=== PATIENT | female | born 1995 | race Caucasian/White ===

== ENCOUNTER 2018-06-28 08:43 | Emergency (ER) | payer OTHER ==
[~2018-06-28] VITALS: Ht 198.1 cm; Wt 70.5 kg
[2018-06-28 08:48] VITALS: BP 137/71
--- NOTE | 2018-06-28 08:55 | NUR ---
PT AMB TO BED 9
--- NOTE | 2018-06-28 09:00 | NUR ---
23 yo F c/o N/V, dizziness, mouth tingling sensation and a productive cough X 1 week. Pt verbalized having "green phlegm". Denies PMH.
--- NOTE | 2018-06-28 09:10 | NUR ---
WAITING FOR ER MD EVALUATION.
[2018-06-28 09:57] VITALS: BP 137/71
--- NOTE | 2018-06-28 09:57 | NUR ---
Patient discharged by dr tate with v/s stable. Written and verbal after care instructions given and explained. Patient alert, oriented and verbalized understanding of instructions. Ambulatory with steady gait. All questions addressed prior to discharge. ID band removed. Patient advised to follow up with PMD. Rx of antivert&augmentin given. Patient educated on indication of medication including possible reaction and side effects. Opportunity to ask questions provided and answered.
== END 2018-06-28 09:57 | disposition home or self-care (01) ==
LOC: MED 08:43
DX: J06.9 Acute upper respiratory infection, unspecified (principal); H93.3X3 Disorders of bilateral acoustic nerves
CPT/HCPCS: 81002; 99283

== ENCOUNTER 2018-07-21 09:11 | Emergency (ER) | payer OTHER ==
[~2018-07-21] VITALS: Ht 167.6 cm; Wt 70.3 kg
[2018-07-21 09:12] VITALS: BP 131/74
--- NOTE | 2018-07-21 09:15 | NUR ---
23 y female bib self c/o right ear / throat pain. pain aching 10/10. denies drainage from ears---no drooling or muffled voice noted. ear wax noticied in ear. slight redness in back of throat. no cough. [id number]. vss at this time. bed is down, locked, bed rail x 1, ermd notified. hx--denies rx---none
--- NOTE | 2018-07-21 09:20 | NUR ---
dr burton at bedside
[2018-07-21] MEDS ORDERED: DEXAMETHASONE 10 MG/ML VIAL IM ONE (09:25)
[2018-07-21] MEDS ORDERED: KETOROLAC 60 MG/2 ML VIAL IM ONE (09:25)
[2018-07-21] MEDS ORDERED: CLINDAMYCIN 600 MG/4 ML VIAL IM ONE (09:25)
--- NOTE | 2018-07-21 09:50 | NUR ---
MEDS GIVEN IVP, DR AMARO NOTIFIED
[2018-07-21 10:07] VITALS: BP 128/72
--- NOTE | 2018-07-21 10:07 | NUR ---
Patient discharged with v/s stable. Written and verbal after care instructions given and explained. Patient alert, oriented and verbalized understanding of instructions. Ambulatory with steady gait. All questions addressed prior to discharge. ID band removed. Patient advised to follow up with PMD. Rx of prednisone, azithromycin given. Patient educated on indication of medication including possible reaction and side effects. Opportunity to ask questions provided and answered.
== END 2018-07-21 10:07 | disposition home or self-care (01) ==
LOC: MED 09:11
DX: J03.90 Acute tonsillitis, unspecified (principal); H65.91 Unspecified nonsuppurative otitis media, right ear
CPT/HCPCS: 96374; 96375; 99283; J1100; J1885; J3490

== ENCOUNTER 2018-08-11 20:02 | Emergency (ER) | payer OTHER ==
[~2018-08-11] VITALS: Ht 157.5 cm; Wt 71.7 kg
[2018-08-11 20:20] VITALS: BP 118/80
--- NOTE | 2018-08-11 20:20 | NUR ---
TO BED # 09 AMBULATORY
--- NOTE | 2018-08-11 20:42 | NUR ---
PT TO ED WITH C/O L KNEE PAIN S/P WORKING OUT X 2 DAYS. NO OBVIOUS DEFORMITY. NO SWELLING NOTED. PT PLACED INTO BED, PENDING MD JOSHI.
[2018-08-11] MEDS ORDERED: IBUPROFEN 600 MG TAB PO ONE (20:45)
--- NOTE | 2018-08-11 21:21 | NUR ---
KNEE IMMOBILIZER PLACED ON PT L KNEE. +CSM
--- NOTE | 2018-08-11 21:22 | NUR ---
PT GIVEN INSTRUCTION ON PROPER USE OF CRUTCHES. CRUTCHES FITTED TO PT HEIGHT WITH APPROXIMATELY 2 INCH GAP BETWEEN ARMPIT AND START OF CRUTCHES, AND HANDLES MOVED TO PT WRISTS AT REST. PT GIVEN INSTRUCTION ON PROPER USE, INCLUDING SITTING TO STANDING AND VICE VERSA, ASCENDING/DESCENDING, STAIRS, AND WALKING WITH CRUTCHES. PT DEMONSTRATED SAFE USE FOR APPROXIMATELY 40 FEET. PT STATED SHE FELT CONFIDENT WITH USE.
[2018-08-11 21:25] VITALS: BP 120/78
== END 2018-08-11 21:25 | disposition home or self-care (01) ==
LOC: MED 20:02
DX: S83.92XA Sprain of unspecified site of left knee, initial encounter (principal); X58.XXXA Exposure to other specified factors, initial encounter; Y93.89 Activity, other specified; Y92.89 Other specified places as the place of occurrence of the external cause; Y99.8 Other external cause status
CPT/HCPCS: 29505; 73562; 99283; Q0092

== ENCOUNTER 2018-09-10 18:51 | Emergency (ER) | payer OTHER ==
[~2018-09-10] VITALS: Ht 167.6 cm; Wt 71.2 kg
[2018-09-10 18:57] VITALS: BP 130/99
--- NOTE | 2018-09-10 19:00 | NUR ---
PATIENT PRESENTS TO ED WITH C/O SORE THROAT X3 DAYS AND RT EAR PAIN. +NAUSEA, +FEVER, -VOMITING. AFEBRILE AT THIS TIME. NON PRODUCTIVE COUGH PRESENT. LUNGS CLEAR BL; PATIENT STATES PAIN OF 9/10 AT THIS TIME; VSS; PATIENT POSITIONED FOR COMFORT; HOB ELEVATED; BEDRAILS UP X1; BED DOWN. ER MD TO EVALUATE PT.
--- NOTE | 2018-09-10 19:15 | NUR ---
REPORT GIVEN TO KIT LANG. TRANSFER OF CARE AT THIS TIME.
--- NOTE | 2018-09-10 19:22 | NUR ---
DR. GARCES BEDSIDE EVALUATING PT
--- NOTE | 2018-09-10 19:50 | NUR ---
STREP CULTURE COLLECTED. LAB INFORMED TO [employer].
[2018-09-10] MEDS ORDERED: PENICILLIN V POTASSIUM 250 MG TAB PO ONE (20:45)
[2018-09-10 21:05] VITALS: BP 128/88
--- NOTE | 2018-09-10 21:05 | NUR ---
Patient discharged with v/s stable. Written and verbal after care instructions given and explained. Patient alert, oriented and verbalized understanding of instructions. Ambulatory with steady gait. All questions addressed prior to discharge. ID band removed. Patient advised to follow up with PMD. Rx of PENICILLIN VK given. Patient educated on indication of medication including possible reaction and side effects. Opportunity to ask questions provided and answered.
== END 2018-09-10 21:05 | disposition home or self-care (01) ==
LOC: MED 18:51
DX: J02.0 Streptococcal pharyngitis (principal); H92.01 Otalgia, right ear
CPT/HCPCS: 87081; 99283